=== PATIENT | male | born 1970 | race Caucasian/White ===

== ENCOUNTER 2017-01-07 16:22 | Emergency (ER) | payer MEDICAID ==
[~2017-01-07] VITALS: Ht 172.7 cm; Wt 54.0 kg
[2017-01-07 16:32] VITALS: BP 109/76
[2017-01-07] MEDS ORDERED: LIDOCAINE 1%, 20ML ONE (17:15)
[2017-01-07] MEDS ORDERED: LIDOCAINE 1%, 20ML INFIL ONE (17:30)
== END 2017-01-07 18:38 | disposition home or self-care (01) ==
LOC: ED 18:32
DX: L03.011 Cellulitis of right finger (principal); F17.200 Nicotine dependence, unspecified, uncomplicated
CPT/HCPCS: 10060

== ENCOUNTER 2019-10-23 01:23 | Emergency (ER) | payer MEDICAID ==
[~2019-10-23] VITALS: Ht 170.2 cm; Wt 58.8 kg
--- NOTE | 2019-10-23 01:40 | NUR ---
Care assumed of pt. Pt resting with no s/s of acute distress. C/O R foot pain after dropping a table on it 1 week ago. Some swelling noted to top of foot. Pt able to bear weight. No needs expressed at this time. Call light in reach. Awaiting xray.
[2019-10-23 02:47] VITALS: BP 102/70
== END 2019-10-23 02:49 | disposition home or self-care (01) ==
LOC: ED 01:47
DX: G89.11 Acute pain due to trauma (principal); M79.671 Pain in right foot; X58.XXXA Exposure to other specified factors, initial encounter; Y93.89 Activity, other specified; Y92.89 Other specified places as the place of occurrence of the external cause; Y99.8 Other external cause status
CPT/HCPCS: 99283

== ENCOUNTER 2019-11-09 14:35 | Emergency (ER) | payer MEDICAID ==
[~2019-11-09] VITALS: Ht 170.2 cm; Wt 54.6 kg
--- NOTE | 2019-11-09 14:43 | NUR ---
NO ANSWER X 1
[2019-11-09 14:58] VITALS: BP 140/92
[2019-11-09] MEDS ORDERED: DIPH,PERTUSS(ACELL),TET VAC/PF 0.5 ML IM-VACC ONE ×2 (15:00→15:23)
[2019-11-09] MEDS ORDERED: NEOSPORIN OINT. PKT 1 PACKET ONE (15:23)
[2019-11-09] MEDS ORDERED: KETOROLAC 30 MG/1 ML IM ONE (15:30)
[2019-11-09] MEDS ORDERED: KETOROLAC 30 MG/1 ML ONE (15:38)
--- NOTE | 2019-11-09 15:42 | NUR ---
PT MEDICATED PER [facility]
== END 2019-11-09 15:50 | disposition home or self-care (01) ==
LOC: ED 15:35
DX: L02.414 Cutaneous abscess of left upper limb (principal); L02.811 Cutaneous abscess of head [any part, except face]; F17.290 Nicotine dependence, other tobacco product, uncomplicated
CPT/HCPCS: 90471; 90715; 96372; 99284; 99406; J1885; 99283

== ENCOUNTER 2020-12-02 01:49 | Emergency (ER) | payer MEDICAID ==
[~2020-12-02] VITALS: Ht 172.7 cm; Wt 55.0 kg
[2020-12-02 01:52] VITALS: BP 133/88
--- NOTE | 2020-12-02 02:15 | NUR ---
Pt with very dramatic presentation, threw himself on floor rolling on ground in ball. Says hes more comfortable that way. Had pt sign record release for [facility] and faxed over . [employer] RECEIVER informed.
[2020-12-02] MEDS ORDERED: DIAZEPAM 5 MG TABLET PO ONE (02:30)
[2020-12-02] MEDS ORDERED: ONDANSETRON ODT 4 MG PO ONE (02:30)
[2020-12-02] MEDS ORDERED: KETOROLAC 30 MG/1 ML IM ONE (02:30)
[2020-12-02] MEDS ORDERED: KETOROLAC 30 MG/1 ML ONE (02:50)
[2020-12-02] MEDS ORDERED: ONDANSETRON ODT 4 MG ONE (02:50)
[2020-12-02] MEDS ORDERED: DIAZEPAM 5 MG TABLET ONE (02:50)
--- NOTE | 2020-12-02 02:56 | NUR ---
pt laying on floor clenching side moaning in pain being very dramatic. pt slow moving to get into gurney, no vomiting noted at this time. pt repeating "it feels like it moved".
--- NOTE | 2020-12-02 03:08 | NUR ---
report given to nato zaragoza
--- NOTE | 2020-12-02 03:15 | NUR ---
Pt rolling around on gurney and then on floor, states none of the medication is working.
--- NOTE | 2020-12-02 03:29 | NUR ---
Pt refuses incentive spirometer. Pt remains loudly moaning when staff walks by room, then throws himself on ground c/o pain.
--- NOTE | 2020-12-02 03:37 | NUR ---
Pt threw his dc papers and rx on ground in front of this nurse and walked out.
== END 2020-12-02 03:35 | disposition home or self-care (01) ==
LOC: ED 02:19
DX: S20.222A Contusion of left back wall of thorax, initial encounter (principal); X58.XXXA Exposure to other specified factors, initial encounter; Y93.9 Activity, unspecified; Y92.89 Other specified places as the place of occurrence of the external cause; Y99.8 Other external cause status
CPT/HCPCS: 96372; 99283; J1885; Q0162